=== PATIENT | male | born 1945 | race Caucasian/White ===

== ENCOUNTER 2025-06-17 08:16 | Outpatient (CLI) | payer MEDICARE, OTHER ==
[2025-06-17 08:47] LABS: LEUKOCYTE ESTERASE ,URINE NEGATIVE (Neg); OCCULT BLOOD,URINE TRACE-LYSED (Neg)
[2025-06-17 09:00] LABS: NITRITES, URINE NEGATIVE (Neg); UA COLLECTION TYPE NON-SPECIFIED
[2025-06-17 09:03] LABS: MUCUS STRANDS NONE SEEN /LPF (Neg); SQUAMOUS EPITHELIAL CELL,UR NONE SEEN /LPF (FEW)
== END 2025-06-17 23:59 | disposition home or self-care (01) ==
LOC: RAD 08:16
PROVIDERS: ATTEND Internal Medicine
DX: N39.0 Urinary tract infection, site not specified (principal)
CPT/HCPCS: 81001; 87088